=== PATIENT | female | born 1980 | race Caucasian/White ===

== ENCOUNTER 2023-12-22 19:50 | Inpatient (IN) | payer OTHER ==
[~2023-12-22] VITALS: Ht 172.7 cm; Wt 67.6 kg
[2023-12-22] MEDS: KETOROLAC 60MG/2ML VIAL IM ONE (20:45)
[2023-12-22] MEDS: MORPHINE SULFATE 4 MG/ML INJ (FOR IV/IM USE) IV ONE (21:45)
[2023-12-22] MEDS: DEXAMETHASONE 10 MG/ML VIAL IV ONE (22:22)
[2023-12-22] MEDS: MORPHINE SULFATE 4 MG/ML INJ (FOR IV/IM USE) IV STA (23:39)
[2023-12-22] MEDS: SODIUM CHLORIDE 0.9% 1,000 ML IV ONE (23:45)
[2023-12-23 00:13] LABS: BASOPHILS % 0.7 % (0.0-2.0); EOSINOPHILS % 3.1 % (0.0-5.0); HEMATOCRIT. 37.6 % (36.0-48.0); HEMOGLOBIN. 12.9 g/dL (12.0-16.0); LYMPHOCYTES % 17.2 % (20.0-50.0); MEAN CORPUSCULAR HEMOGLOBIN 33.2 pg (28.0-32.0); MEAN CORPUSCULAR HGB CONC 34.4 g/dL (31.0-37.0); MEAN CORPUSCULAR VOLUME 96.4 fL (81.0-99.0); MEAN PLATELET VOLUME 8.9 fl (7.4-10.4); MONOCYTES % 3.9 % (2.0-8.0); NEUTROPHILS % 75.1 % (40.0-76.0); PLATELET 304 x1000/uL (130-400); RED BLOOD CELL COUNT 3.89 mill/uL (4.2-5.4); RED CELL DISTRIBUTION WIDTH 13.8 % (11.6-14.6); WHITE BLOOD COUNT 8.8 x1000/uL (4.5-11.0)
[2023-12-23 00:34] LABS: ALANINE AMINOTRANSFERASE 13 IU/L (10-49); ALBUMIN 3.7 g/dL (3.2-4.8); ASPARTATE AMINOTRANSFERASE 17 IU/L (<34); BILIRUBIN TOTAL 0.6 mg/dL (0.1-1.0); CALCIUM 8.1 mg/dL (8.7-10.4); CARBON DIOXIDE 23 mEq/L (21-32); CHLORIDE 111 mEq/L (98-107); CREATININE 0.5 mg/dL (0.6-1.0); GLUCOSE 101 mg/dL (70-105); POTASSIUM 3.8 mEq/L (3.5-5.1); PROTEIN TOTAL 6.9 g/dL (6.0-8.3); SODIUM 140 mEq/L (136-145); UREA NITROGEN BLOOD 8 mg/dL (9-23)
[2023-12-23 00:44] LABS: HCG SCREEN NEGATIVE
[2023-12-23] MEDS: MORPHINE SULFATE 4 MG/ML INJ (FOR IV/IM USE) IV ONE (01:15)
[2023-12-23 09:00] VITALS: BP 99/42; PULSE 98; RESP 18; TEMP 97.8
[2023-12-23] MEDS ORDERED: ONDANSETRON HCL 4MG/2ML INJ IV PRN (11:30)
[2023-12-23] MEDS ORDERED: ACETAMINOPHEN 325MG TABLET PO PRN (11:30)
[2023-12-23 12:00] VITALS: BP 98/62; PULSE 66; RESP 17; TEMP 97.6
[2023-12-23] MEDS: KETOROLAC 30MG/ML VIAL IV PRN (13:28)
[2023-12-23 16:00] VITALS: BP 97/46; PULSE 68; RESP 18; TEMP 98.4
[2023-12-23 20:00] VITALS: BP 103/57; PULSE 75; RESP 18; TEMP 97.3
[2023-12-23 21:58] LABS: HEPATITIS B SURFACE ANTIGEN NEGATIVE (Negative); HEPATITIS C AB NON REACTIVE (Neg) (Negative)
[2023-12-24] VITALS: BP 104/63; PULSE 60; RESP 18; TEMP 96.8
[2023-12-24 04:00] VITALS: BP 107/60; PULSE 68; RESP 18; TEMP 97.1
[2023-12-24 08:00] VITALS: BP 110/63; PULSE 58; RESP 18; TEMP 97.9
[2023-12-24 12:00] VITALS: BP 124/66; PULSE 68; RESP 17; TEMP 97.8
[2023-12-24 16:00] VITALS: BP 108/68; PULSE 70; RESP 18; TEMP 98.1
[2023-12-24 18:16] VITALS: BP 111/61; PULSE 78; TEMP 98.6; O2SAT 100
== END 2023-12-24 19:00 | disposition home or self-care (01) | DRG 552 ==
LOC: EDBD 19:50 → ER 19:50 → 6EST 12-23 01:44
PROVIDERS: ADMIT Internal Medicine; ATTEND Internal Medicine
DX: M54.50 Low back pain, unspecified (principal)
CPT/HCPCS: 36415; 72148; 80053; 84703; 85025; 86705; 87340; 97162; 99285; C1893; J1100; J1885; J2270; J7030